=== PATIENT | female | born 1960 | race Caucasian/White ===

== ENCOUNTER → 2019-08-05 | Outpatient (CLI) | payer OTHER ==
[~2019-08-05] MED LIST: ACHD5005 PO
--- NOTE | 2019-08-05 15:37 | Diagnostic Imaging Report ---
INDICATION: Routine screening. No prior mammograms are available for comparison. This is a baseline study. 2-D and 3-D bilateral screening mammography was performed. The current study was also evaluated with a Computer Aided Detection (CAD) system. 3-D tomosynthesis was also performed and reviewed. FINDINGS: Both breasts are heterogeneously dense, limiting the sensitivity of mammography. There is a nodular density in the inferior right breast posterior depth, best seen on tomographic images. Additional views are recommended. This is approximately at the 6 o'clock location 6 cm from the nipple. Left breast is unremarkable. No malignant-appearing microcalcifications are seen. Axillae are unremarkable. IMPRESSION: Nodular density at the 6 o'clock location right breast, 6 cm from the nipple. Additional views are recommended for further evaluation. ACR BI-RADS Category 0: Incomplete. (Needs additional imaging evaluation). Result letter will be mailed to the patient. Note: At least 10% of breast cancer is not imaged by mammography. Dictated by: Dictated on workstation # [id number]
== END ==
LOC: RAD 14:52
PROVIDERS: ATTEND Family Medicine
DX: Z12.31 Encounter for screening mammogram for malignant neoplasm of breast (principal)
CPT/HCPCS: 77067

== ENCOUNTER → 2019-08-10 | Outpatient (CLI) | payer OTHER ==
--- NOTE | 2019-08-10 10:42 | Diagnostic Imaging Report ---
INDICATION: Abnormal mammogram. TECHNIQUE: Targeted ultrasound right breast was performed in the right lower quadrant. FINDINGS: In the 6 o'clock position of the right breast 7 cm from nipple there is a small hypoechoic density measuring 4 x 5 mm. This is nonspecific however there is no internal blood flow. There are no posterior acoustic shadowing. There are no other discrete solid or cystic masses. IMPRESSION: Category 3 probably benign Questionable 5 mm hypoechoic density in the 6 clock position right breast 7 cm from the nipple. Features nonspecific however suggests development of an intraparenchymal lymph node or possibly complex cyst. Recommend 6 month follow-up to ensure stability as it is uncertain if this definitively correlates with the mammographic findings. ACR BI-RADS Category 3: Probably benign findings. Dictated by: Dictated on workstation # [id number]
--- NOTE | 2019-08-10 11:20 | Diagnostic Imaging Report ---
INDICATION: Abnormal screening mammogram. COMPARISON: 08/05/2019. TECHNIQUE: Digital diagnostic mammography was performed of the right breast with a Computer Aided Detection (CAD) system. FINDINGS: Two additional views of the right breast were obtained. There is a small nodular density in the 6 o'clock position of the right breast. Ultrasound was performed which appeared to demonstrate which is an intraparenchymal lymph node. I am uncertain, however, if this definitively correlates with the mammographic finding. If any previous mammograms are available for comparison, these would be helpful. IMPRESSION: There is a small nodular density in the right breast. Ultrasound appeared to demonstrate what is an intraparenchymal lymph node although this was nonspecific. Recommend a 6 month followup to ensure stability. ACR BI-RADS Category 3: Probably benign findings. Result letter will be mailed to the patient. Note: At least 10% of breast cancer is not imaged by mammography. Dictated by: Dictated on workstation # [id number]
== END ==
LOC: RAD 08:54
PROVIDERS: ATTEND Family Medicine
DX: N63.15 Unspecified lump in the right breast, overlapping quadrants (principal)

== ENCOUNTER → 2021-07-31 | Outpatient (CLI) | payer OTHER ==
[2021-07-31 07:54] LABS: BASOPHILS % (AUTO) 1 % (0-10); EOSINOPHILS # (AUTO) 0.2 10^3/uL (0.0-0.3); EOSINOPHILS % (AUTO) 4 % (0-10); HEMATOCRIT 39 % (35-52); HEMOGLOBIN 12.7 g/dL (11.5-16.0); LYMPHOCYTES # (AUTO) 1.1 10^3/uL (1.0-4.0); LYMPHOCYTES % (AUTO) 31 % (12-44); MEAN CORPUSCULAR HEMOGLOBIN 28 pg (25-34); MEAN CORPUSCULAR HGB CONC 33 g/dL (32-36); MEAN CORPUSCULAR VOLUME 87 fL (80-99); MONOCYTES # (AUTO) 0.2 10^3/uL (0.0-1.0); MONOCYTES % (AUTO) 6 % (0-12); NEUTROPHILS # (AUTO) 2.1 10^3/uL (1.8-7.8); NEUTROPHILS % (AUTO) 57 % (42-75); PLATELET COUNT 122 10^3/uL (130-400); WHITE BLOOD COUNT 3.6 10^3/uL (4.3-11.0)
[2021-07-31 08:08] LABS: ALBUMIN 3.8 GM/DL (3.2-4.5); POTASSIUM 3.8 MMOL/L (3.6-5.0)
[2021-07-31 08:10] LABS: CALCIUM 8.9 MG/DL (8.5-10.1)
[2021-07-31 08:11] LABS: TOTAL PROTEIN 7.6 GM/DL (6.4-8.2)
[2021-07-31 08:13] LABS: BILIRUBIN,TOTAL 0.5 MG/DL (0.1-1.0)
[2021-07-31 08:14] LABS: CREATININE SERUM 0.69 MG/DL (0.60-1.30)
[2021-07-31 08:28] LABS: PROTHROMBIN TIME PATIENT 13.3 SEC (12.2-14.7)
--- NOTE | 2021-07-31 09:03 | Diagnostic Imaging Report ---
PROCEDURE: US Hepatic (Liver). TECHNIQUE: Multiple Real-time grayscale images were obtained over the right upper quadrant in various projections. INDICATION: Hepatitis C with abnormal liver enzymes. FINDINGS: The liver is slightly echogenic. The liver is not enlarged measuring 16 cm. The bile ducts are not dilated. The common duct measures 5 mm. The gallbladder is absent. The pancreas is somewhat obscured but the portions visualized appear normal. The aorta measures 1.7 cm. The vena cava and portal vein appear normal with Doppler sampling. The right kidney measures 12.2 cm without hydronephrosis. There is no ascites. Negative Gibson sign. IMPRESSION: Mild fatty infiltration of the liver; otherwise, negative right upper quadrant ultrasound. Dictated by: Dictated on workstation # [id number]
== END ==
LOC: RAD 07:15
PROVIDERS: ATTEND Family Medicine
DX: K76.0 Fatty (change of) liver, not elsewhere classified (principal); B19.20 Unspecified viral hepatitis C without hepatic coma
CPT/HCPCS: 36415; 76705; 80053; 85025; 85610

== ENCOUNTER 2022-06-05 05:39 | Outpatient (CLI) | payer OTHER ==
[~2022-06-05] VITALS: Ht 170.2 cm; Wt 86.4 kg
== END 2022-06-10 16:49 | disposition home or self-care (01) ==
LOC: PREOP 05:39
PROVIDERS: ATTEND Surgery
DX: Z01.818 Encounter for other preprocedural examination (principal); K43.2 Incisional hernia without obstruction or gangrene

== ENCOUNTER 2022-06-19 10:27 | Day surgery (SDC) | payer OTHER ==
[~2022-06-19] VITALS: Ht 170.2 cm; Wt 86.4 kg
[2022-06-19] VITALS (11 sets, daily range): BP systolic 95–144; BP diastolic 58–84
[2022-06-19] MEDS ORDERED: HYDR-3817 PO (10:34)
--- NOTE | 2022-06-19 10:35 | Discharge Inst-Surgical ---
D/C Lap Instructions-KIDO Reconcile Patient Problems Problems Reviewed?: Yes New, Converted, or Re-Newed RX: RX on Chart Follow Up Appt in 2 weeks Activity as tolerated No driving for 24 hours No driving while on pain medications Incentive Spirometry use every 2 hours while awake Regular Diet Symptoms to Report: Fever over 101 degree F, Nausea/Vomiting Infection Signs and Symptoms to report: Increased redness, Foul odor of wound, Increased drainage Bathing instructions: May shower Operative Area Clean/Dry; Keep incision clean/dry If any problems/questions: Contact your physician or go to Emergency Room JJ SCHWAB APRN Jun 19, 2022 10:34
--- NOTE | 2022-06-19 10:35 | Progress Note-Pre Operative ---
Pre-Operative Progress Note Date H&P Reviewed: Jun 19, 2022 Time H&P Reviewed: 10:35 History & Physical: H&P Reviewed, Patient Examed, No changes noted Pre-Operative Diagnosis: Incisional hernia JJ SCHWAB APRN Jun 19, 2022 10:35
[2022-06-19] MEDS ORDERED: ACETAMINOPHEN 325 MG TABLET PO PRN (10:45)
[2022-06-19] MEDS ORDERED: morphine INJ 10 MG/ML 1ML (SYR OR VIAL) IVP PRN (10:45)
[2022-06-19] MEDS ORDERED: HYDROcodone/APAP 5 MG/325 MG (LORTAB) TAB PO ONE (10:45)
[2022-06-19] MEDS ORDERED: ONDANSETRON 4 MG/2 ML (SDV) Z0FRAN IVP PRN (10:45)
[2022-06-19] MEDS ORDERED: NS (IVPB) 50 ML ONE (11:03)
[2022-06-19] MEDS ORDERED: ceFAZolin INJECTION 2,000 MG ONE (11:03)
[2022-06-19] MEDS ORDERED: ceFAZolin INJECTION 2,000 MG in NS (IVPB) 50 ML IV ONE (11:30)
[2022-06-19] MEDS ORDERED: LACTATED RINGERS 1,000 ML IV PRN (11:30)
[2022-06-19] MEDS ORDERED: BUP/EPI 0.25% 1:200,000 (MARCAINE) 30 ML VIAL ONE (11:42)
[2022-06-19] MEDS ORDERED: fentaNYL INJ 100 MCG/2 ML AMP ONE ×2 (12:35→13:55)
[2022-06-19] MEDS ORDERED: MIDAZOLAM 2 MG/2 ML (VERSED) VIAL ONE (12:35)
[2022-06-19] MEDS ORDERED: BUP/EPI 0.25% 1:200,000 (MARCAINE) 30 ML VIAL IJ ONE (13:51)
[2022-06-19] MEDS ORDERED: proPOfol 200 MG/20 ML (DIPRIVAN) VIAL IV ONE (13:52)
[2022-06-19] MEDS ORDERED: ONDANSETRON 4 MG/2 ML (SDV) Z0FRAN ONE (13:52)
[2022-06-19] MEDS ORDERED: SEVOFLURANE (ULTANE) 15 ML INHAL SOLN ONE (13:53)
[2022-06-19] MEDS ORDERED: LIDOCAINE PF 2% 5 ML (XYLOCAINE) VIAL ONE (13:53)
[2022-06-19] MEDS ORDERED: ROCURONIUM 10 MG/ML 5 ML SYRINGE IV ONE (13:56)
--- NOTE | 2022-06-19 14:32 | Progress Note-Post Operative ---
Post-Operative Progess Note Surgeon (s)/Safety Compliance Specialist (s) Surgeon JAVIER TERAN MD Safety Compliance Specialist: nadiya vega MOVER HELPER Pre-Operative Diagnosis Incisional hernia Post-Operative Diagnosis same, 3cm, sx abd wall adhesions. Procedure & Operative Findings Date of Procedure 06/19/22 Procedure Performed/Findings open incisional hernia repair with mesh, abdominoplasty skin/scarpas fascia/deep fascia. Anesthesia Type get Estimated Blood Loss Estimated blood loss (mL): minimal Specimens/Packing Specimens Removed none JAVIER TERAN MD Jun 19, 2022 14:32
--- NOTE | 2022-06-19 14:40 | Anesthesia-General Post-Op ---
General Patient Condition Mental Status/LOC: Same as Preop Cardiovascular: Satisfactory Nausea/Vomiting: Absent Respiratory: Satisfactory Pain: Controlled Complications: Absent Post Op Complications Complications None Follow Up Care/Instructions Patient Instructions None needed. Anesthesia/Patient Condition Patient Condition Patient is doing well, no complaints, stable vital signs, no apparent adverse anesthesia problems. No complications reported per nursing. CHINO DANG CRNA Jun 19, 2022 14:40
[2022-06-19] MEDS ORDERED: morphine INJ 10 MG/ML 1ML (SYR OR VIAL) IVP ONE (14:45)
[2022-06-19] MEDS ORDERED: HYDROcodone/APAP 5 MG/325 MG (LORTAB) TAB ONE (15:38)
--- NOTE | 2022-06-19 18:35 | OPERATIVE REPORT ---
DATE OF SERVICE: 06/19/2022 ATTENDING PRIMARY CARE PHYSICIAN: Dr. Aditya Perera. PREOPERATIVE DIAGNOSES: 1. Symptomatic reducible incisional hernia. 2. Symptomatic midline laparotomy scar. PROCEDURE: Open umbilical hernia repair with mesh and abdominoplasty with fascial release 13 cm in length. SURGEON:Anand Teran MD ALIGNMENT TECHNICIAN: Wai Lopez APRN ANESTHESIA: General endotracheal. ESTIMATED BLOOD LOSS: Minimal. FINDINGS: Incisional hernia defect approximately 3 cm in size with omentum within the hernia sac. skin and felipe's fascia attached to deep fascia fascia. ESTIMATED BLOOD LOSS: Minimal. FINDINGS: Same as postop diagnosis. DISPOSITION: The patient tolerated the procedure well. INDICATIONS: The patient is a 61-year-old female who was referred to us for pain in the umbilical as well as infraumbilical region. She also has had an outpouching. She had an exploratory laparotomy at age 15 and a right oophorectomy due to an ectopic . She then reports that she developed an incisional hernia a few years later and this was repaired. She has developed an outpouching left of the midline laparotomy incision, which has grown larger in size and become painful. Also, the patient's body habitus has changed over the years and she did have the previous midline laparotomy incision at age 15. There is significant tethering of the skin to the fascia causing a pulling pain along the infraumbilical region. A 13 cm in length. It was explained to her we will proceed with repair of the umbilical hernia as well as proceed with an abdominoplasty, which would encompass a release of the deep fascia to Felipe's fascia and skin and this measured length with approximately 13 cm in length. DESCRIPTION OF PROCEDURE: The patient was brought to the operating room, laid supine on the table. After adequate IV pain and sedative medications and general endotracheal intubation, the abdomen was prepped and draped in standard surgical fashion. The skin was anesthetized in the previous midline incision in the most superior region with 0.5% Marcaine with epinephrine. A curvilinear skin incision was then made using a #15 blade. The hernia sac was identified and completely dissected out using blunt dissection as well as electrocautery. The hernia sac was then opened using Metzenbaum scissors. There was only omentum within the hernia sac. The hernia sac was then fully excised and any omental adhesions towards the abdominal wall were taken down using blunt dissection with visualization with good hemostasis. The defect was approximately 3 cm in size and an 8.0 round coated polypropylene mesh was placed in the defect and sutured transfascially to the mesh using interrupted 0 Prolene sutures. Good hemostasis was observed. We then proceeded with the abdominoplasty and the skin and Felipe's fascia were released to the deep fascia from when she had the midline laparotomy incision many years ago. Using the same incision, we undermined inferiorly excising all the scar tissue to Felipe's fascia and the skin to the deep fascia using electrocautery. We proceeded until the length of the previous midline incision was reached inferiorly and the skin and subcutaneous were released and freed from the deep fascia. Good hemostasis was observed. The subcutaneous tissue was then reapproximated using 3-0 Vicryl interrupted sutures. Skin was closed using 4-0 Monocryl running subcuticular suture. Wound was then cleaned and covered with Dermabond. The infraumbilical region was then filled with tonsil sponges followed by 4 x 4 gauze followed by a large Op-Site. This was then followed by an abdominal binder. The patient tolerated the procedure well. POSTOPERATIVE PLAN: We will start IV and oral pain medications as well as a clear liquid diet. Once she was tolerating clears with good pain control with oral pain medication and is ambulating well, we will discharge her home where she will be instructed to do no heavy lifting or exertion for the next 2 weeks as well as to continue to wear the abdominal water binder, both day and night for the next 2 weeks. Job ID: [id number] DocumentID: [id number] Dictated Date: 06/19/2022 14:24:20 Hosiery Looper Date: 06/19/2022 18:33:00 Dictated By: JAVIER TERAN MD [facility]
== END 2022-06-19 16:30 ==
LOC: SDC 10:27
PROVIDERS: ATTEND Surgery
DX: K43.2 Incisional hernia without obstruction or gangrene (principal); L90.5 Scar conditions and fibrosis of skin
CPT/HCPCS: 17999; 49560; 49568; 87081; 94664; C1781